=== PATIENT | female | born 1975 | race Caucasian/White ===

== ENCOUNTER → 2018-03-15 | Outpatient (CLI) | payer OTHER ==
[~2018-03-15] MED LIST: LISI10TA PO
--- NOTE | 2018-03-15 17:33 | Diagnostic Imaging Report ---
INDICATION: Routine screening. No prior mammograms are available for comparison. This is a baseline study. 2-D and 3-D bilateral screening mammography was performed with CAD. The current study was also evaluated with a Computer Aided Detection (CAD) system. FINDINGS: Both breasts are primarily involutional. There are benign-appearing calcifications scattered throughout both breasts. No discrete mass or malignant-appearing microcalcifications are seen. The axillae are unremarkable. IMPRESSION: No mammographic features suspicious for malignancy are identified. ACR BI-RADS Category 2: Benign findings. Result letter will be mailed to the patient. Note: At least 10% of breast cancer is not imaged by mammography. Dictated by: Dictated on workstation # [id number]
== END ==
LOC: RAD 09:20
PROVIDERS: ATTEND Nurse Practitioner Family
DX: Z12.31 Encounter for screening mammogram for malignant neoplasm of breast (principal)
CPT/HCPCS: 77067

== ENCOUNTER → 2020-02-24 | Outpatient (CLI) | payer OTHER ==
--- NOTE | 2020-02-24 17:38 | Diagnostic Imaging Report ---
PROCEDURE: US Renal Bilateral. TECHNIQUE: Multiple real-time grayscale images were obtained over the kidneys in various projections bilaterally. INDICATION: Hypertension. FINDINGS: There are no prior studies available for comparison. This study was technically difficult due to the patient's body habitus. The left kidney is barely visualized. The left kidney measures 8.9 x 4.3 x 5.0 cm. There is no obvious mass or hydronephrosis of the left kidney. The right kidney could not be identified. The bladder is partially filled and consequently difficult to assess. There is no obvious bladder abnormality evident. IMPRESSION: 1. There is no acute abnormality identified on this limited exam. 2. If clinical concern regarding an underlying abnormality persists, then CT will be recommended for further study. Dictated by: Dictated on workstation # [id number]
== END ==
LOC: RAD 15:15
PROVIDERS: ATTEND Family Medicine
DX: I10 Essential (primary) hypertension (principal); R80.9 Proteinuria, unspecified
CPT/HCPCS: 76770

== ENCOUNTER → 2020-05-02 | Outpatient (CLI) | payer OTHER ==
--- NOTE | 2020-05-02 18:05 | Diagnostic Imaging Report ---
ANKLE, RIGHT, 3 VIEWS COMPARISON: Right foot radiographs performed concurrently INDICATION: Right ankle pain after rolled. TECHNIQUE: Non-weight bearing AP, oblique, and lateral views. FINDINGS: No fracture or traumatic malalignment. Chronic ossific fragments the tip of the medial malleolus. No osteochondral lesion of the talar dome. Os trigonum is present. Moderate soft tissue swelling on the lateral aspect ankle. IMPRESSION: 1. No acute fracture or traumatic malalignment. Dictated by: Dictated on workstation # [id number]
--- NOTE | 2020-05-02 18:12 | Diagnostic Imaging Report ---
INDICATION: Right foot pain. COMPARISON: Right ankle radiograph performed concurrently. TECHNIQUE: 3 views of the right foot were obtained. FINDINGS: There is no acute fracture or traumatic malalignment. Large pointed plantar calcaneal spur. No features of osseous tarsal coalition. No radiopaque foreign body or discrete soft tissue swelling. IMPRESSION: No acute fracture in the right foot. Dictated by: Dictated on workstation # [id number]
== END ==
LOC: RAD 16:25
PROVIDERS: ATTEND Nurse Practitioner Family
DX: M79.671 Pain in right foot (principal)
CPT/HCPCS: 73592; 73610; 73630

== ENCOUNTER → 2020-05-11 | Outpatient (CLI) | payer OTHER ==
--- NOTE | 2020-05-11 08:59 | Diagnostic Imaging Report ---
PROCEDURE: US Hepatic (Liver). TECHNIQUE: Multiple real-time grayscale images were obtained over the right upper quadrant in various projections. INDICATION: Elevated liver enzymes. Liver is mildly enlarged at 18.6 cm. There appears to be some increased echogenicity to the liver suggestive of hepatic steatosis. No discrete liver mass is identified. Portal vein is patent and shows normal direction of flow. Gallbladder is surgically absent. Bile ducts are obscured but no significant dilatation is seen. Pancreas, aorta and IVC are obscured. The right kidney is limited in evaluation but no definite hydronephrosis is seen. There is no ascites. IMPRESSION: Limited study due to patient body habitus. There appears to be mild hepatomegaly and hepatic steatosis. No other significant abnormality is detected. Dictated by: Dictated on workstation # [id number]
== END ==
LOC: RAD 08:00
PROVIDERS: ATTEND Nurse Practitioner Family
DX: R94.5 Abnormal results of liver function studies (principal)
CPT/HCPCS: 76705

== ENCOUNTER 2020-08-13 16:26 | Outpatient (RCR) | payer OTHER | END 2020-08-14 | disposition home or self-care (01) | PROVIDERS: ATTEND Orthopaedic Surgery | DX: S93.491A Sprain of other ligament of right ankle, initial encounter (principal); I10 Essential (primary) hypertension; E11.9 Type 2 diabetes mellitus without complications ==

== ENCOUNTER 2020-10-03 16:12 | Outpatient (RCR) | payer OTHER | END 2020-10-22 14:00 | disposition home or self-care (01) | PROVIDERS: ATTEND Orthopaedic Surgery | DX: S93.401A Sprain of unspecified ligament of right ankle, initial encounter (principal); I10 Essential (primary) hypertension; E11.9 Type 2 diabetes mellitus without complications ==

== ENCOUNTER → 2023-05-25 | Outpatient (CLI) | payer OTHER ==
--- NOTE | 2023-05-26 16:00 | Diagnostic Imaging Report ---
INDICATION: Routine screening. COMPARISON: 03/15/2018. TECHNIQUE: 2D and 3D bilateral screening mammography was performed with CAD. FINDINGS: Both breasts are primarily involutional. Scattered benign-appearing calcifications are again noted. No mass or malignant-appearing microcalcifications are identified. The axillae are unremarkable. IMPRESSION: No mammographic features suspicious for malignancy are identified. ACR BI-RADS Category 2: Benign findings. Result letter will be mailed to the patient. Note: At least 10% of breast cancer is not imaged by mammography. Dictated by: Dictated on workstation # [id number]
== END ==
LOC: RAD 15:15
PROVIDERS: ATTEND Family Medicine
DX: Z12.31 Encounter for screening mammogram for malignant neoplasm of breast (principal)
CPT/HCPCS: 77063; 77067